=== PATIENT | male | born 1980 | race Hispanic/Latino ===

== ENCOUNTER 2017-01-28 00:13 | Emergency (ER) | payer MEDICARE ==
[2017-01-28 06:33] VITALS: BP 141/81
--- NOTE | 2017-01-28 07:57 | Emergency Department Report ---
HPI - General Chief Complaint: Medical Clearance Time Seen by Provider: 01/28/17 07:48 - HPI HPI: Pt is a 37 yo male with history of Bipolar disorder controlled with medication presents to ED requesting medical clearance to be [facility]. Pt denies any cc at this time and states compliance with his medication and no substance abuse. Pt denies SI/HI. ED Past Medical Hx - Past Medical History Previous Medical History?: Yes Hx Psychiatric Treatment: Yes (bipolar,substance abuse) - Surgical History Past Surgical History?: Yes Additional Surgical History: nasal reconstruction - Social History Smoking Status: Current Every Day Smoker Substance Use Type: None ED Review of Systems ROS: Stated complaint: MEDICAL CLEARANCE Other details as noted in HPI Constitutional: denies: chills, fever Eyes: denies: eye pain, eye discharge, vision change ENT: denies: ear pain, throat pain Respiratory: denies: cough, shortness of breath, wheezing Cardiovascular: denies: chest pain, palpitations Endocrine: no symptoms reported Gastrointestinal: denies: abdominal pain, nausea, diarrhea Genitourinary: denies: urgency, dysuria Musculoskeletal: denies: back pain, joint swelling, arthralgia Skin: denies: rash, lesions Neurological: denies: headache, weakness, paresthesias Psychiatric: denies: anxiety, depression Hematological/Lymphatic: denies: easy bleeding, easy bruising Physical Exam - Physical Exam Vital Signs: Vital Signs 01/28/17 01/28/17 01:27 06:31 Temperature 97.5 F L 98.0 F Pulse Rate 98 H 79 Respiratory 18 18 Rate Blood Pressure 134/84 141/81 O2 Sat by Pulse 98 100 Oximetry Physical Exam: GENERAL: Alert and oriented x3, no apparent distress, Normal Gait, atraumatic. HEAD: Head is normocephalic and a-traumatic. EYES: Extra ocular muscles are intact. Pupils are equal, round, and reactive to light and accommodation. NOSE: Nose symetrical, Nontender,Nares appeared normal. NECK: Supple. Non edematous, No lymphadenopathy or thyromegaly. LUNGS: Symetrical with respiration, No wheezing, no rales or crackles, CTAB. HEART: S1, S2 present, regular rate and rhythm without murmur, no rubs, no gallops. ABDOMEN: No organomegaly was noted,Positive bowel sounds, soft, and non- distended. . Nontender to palpation on all Quadrants, NO CVA tenderness. EXTREMITIES/MUSCULOSKELETAL: No cyanosis, clubbing, rash, lesions or edema. Full ROM bilaterally. UE/LE Pulses 2+ bilaterally. LE and UE 5+ strength bilaterally NEUROLOGIC: No focal Deficit, Cranial nerves II through XII are grossly intact. No loss of sensation, PSYCHIATRIC: Mood is congruent with affect, denies suicidal or homicidal ideations. SKIN: Warm and dry, No lesions, No ulceration or induration present. ED Course Vital Signs 01/28/17 01/28/17 01:27 06:31 Temperature 97.5 F L 98.0 F Pulse Rate 98 H 79 Respiratory 18 18 Rate Blood Pressure 134/84 141/81 O2 Sat by Pulse 98 100 Oximetry ED Medical Decision Making - Medical Decision Making Pt ia AAO x 3 no neuro deficits Pt can be accepted at [place] Pt shows no sign of being a danger to himself or others He also presents with no medical problems. Vital signs are normal. pt is in no distress. Critical care attestation.: If time is entered above; I have spent that time in minutes in the direct care of this critically ill patient, excluding procedure time. ED Disposition Clinical Impression: Medical clearance for psychiatric admission Disposition: [id number] TO HOME OR SELFCARE Is pt being admited?: No Does the pt Need Aspirin: No Condition: Stable Instructions: Mood Disorders (ED), Medical Clearance for Substance Abuse Treatment (ED) Referrals: PRIMARY MD FAUSTINO [Primary Care Provider] - 3-5 Days KAYE COVINGTON MD [Referring] - 3-[address] [facility] [Outside] - 3-5 Days [facility] [Outside] - 3-5 Days [facility] [Outside] - 3-5 Days [facility] [Outside] - 3-5 Days
== END 2017-01-28 08:16 | disposition home or self-care (01) ==
LOC: ED 00:13
DX: Z02.89 Encounter for other administrative examinations (principal); F31.9 Bipolar disorder, unspecified; F17.200 Nicotine dependence, unspecified, uncomplicated
CPT/HCPCS: 99281